=== PATIENT | male | born 1950 | race Caucasian/White ===

== ENCOUNTER → 2016-09-05 | Outpatient (CLI) | payer OTHER ==
[~2016-09-05] MED LIST: ASMANEX220 MC1 INH; ATIVAN1 MG PO; AZITHROMYCIN 2250 MG PO; BENTYL 10 MG CA10 M1 PO; CIMZIA400 MG/2 M SQ; FLOVENT DISKUS50 MCG IH; GUAIFENESIN-CODE5 ML PO; LORTAB 5-325 M1 EACH PO; MEDI-PHEDRINE30 MG PO; MUCINEX DM TABL1 TA1 PO; NASACORT10.8 ML NS; PREDNISONE 20 M20 MG PO; PREVNAR 13 SYR0.5 ML IM; PRILOSEC20 MG PO; PROAIR HFA8.5 GM INH; SINGULAIR 10 MG10 M1 PO; SYMBICORT160 MCG/4. INH; TYLENOL325 MG PO; VITAMIN D2000 UNIT PO; ZOFRAN ODT4 MG DISSOLVE; ZYRTEC10 M1 PO
== END ==
LOC: RAD 05:22
DX: R91.8 Other nonspecific abnormal finding of lung field (principal); J84.10 Pulmonary fibrosis, unspecified; R09.02 Hypoxemia; R06.02 Shortness of breath; J40 Bronchitis, not specified as acute or chronic

== ENCOUNTER → 2018-12-06 | Outpatient (CLI) | payer OTHER | LOC: RAD 15:17 | DX: J98.4 Other disorders of lung (principal); R91.8 Other nonspecific abnormal finding of lung field ==

== ENCOUNTER → 2019-04-10 | Outpatient (CLI) | payer OTHER | LOC: CAT 09:51 | DX: K57.92 Diverticulitis of intestine, part unspecified, without perforation or abscess without bleeding (principal); Z88.0 Allergy status to penicillin; K76.9 Liver disease, unspecified ==

== ENCOUNTER → 2020-02-05 | Outpatient (CLI) | payer OTHER | LOC: SJCVC 14:29 | PROVIDERS: ATTEND Internal Medicine | DX: I47.2 Ventricular tachycardia (principal); E78.5 Hyperlipidemia, unspecified; M06.9 Rheumatoid arthritis, unspecified; J45.30 Mild persistent asthma, uncomplicated; J84.10 Pulmonary fibrosis, unspecified; K21.9 Gastro-esophageal reflux disease without esophagitis; Z79.899 Other long term (current) drug therapy; Z82.49 Family history of ischemic heart disease and other diseases of the circulatory system ==

== ENCOUNTER → 2020-04-08 | Outpatient (CLI) | payer OTHER | LOC: SJCVCIMAG 03-04 07:22 | PROVIDERS: ATTEND Internal Medicine Cardiovascular Disease | DX: R94.31 Abnormal electrocardiogram [ECG] [EKG] (principal); I45.10 Unspecified right bundle-branch block; I49.3 Ventricular premature depolarization; E78.5 Hyperlipidemia, unspecified; K21.9 Gastro-esophageal reflux disease without esophagitis; Z79.899 Other long term (current) drug therapy ==

== ENCOUNTER → 2020-06-25 | Outpatient (CLI) | payer OTHER | LOC: LAB 09:24 | PROVIDERS: ATTEND Nurse Practitioner | DX: Z20.828 Contact with and (suspected) exposure to other viral communicable diseases (principal) ==

== ENCOUNTER → 2020-07-26 | Outpatient (CLI) | payer OTHER | LOC: CAT 08:32 | PROVIDERS: ATTEND Family Medicine | DX: J32.9 Chronic sinusitis, unspecified (principal); J34.89 Other specified disorders of nose and nasal sinuses ==

== ENCOUNTER → 2020-08-17 | Outpatient (CLI) | payer OTHER | LOC: SJCVC 13:25 | PROVIDERS: ATTEND Internal Medicine | DX: I47.2 Ventricular tachycardia (principal); R00.2 Palpitations; E78.5 Hyperlipidemia, unspecified; M06.9 Rheumatoid arthritis, unspecified; J45.30 Mild persistent asthma, uncomplicated; J84.10 Pulmonary fibrosis, unspecified; K21.9 Gastro-esophageal reflux disease without esophagitis; Z79.899 Other long term (current) drug therapy; Z88.1 Allergy status to other antibiotic agents; Z88.0 Allergy status to penicillin ==

== ENCOUNTER → 2020-11-09 | Outpatient (CLI) | payer OTHER ==
[~2020-11-09] MED LIST changes: +DILTIAZEM 24HR120 M1 PO; +FLOVENT HFA12 G1 INH
== END ==
LOC: LAB 08:26
PROVIDERS: ATTEND Otolaryngology
DX: Z01.812 Encounter for preprocedural laboratory examination (principal); Z20.822 Contact with and (suspected) exposure to COVID-19

== ENCOUNTER → 2020-11-12 | Day surgery (SDC) | payer OTHER ==
[~2020-11-12] VITALS: Ht 172.7 cm; Wt 79.8 kg
--- NOTE | ~2020-11-12 | O ---
[facility] [place] [address] OPERATIVE REPORT Name: NOA OSORIO Room #: REG [facility] M..#: [id number] Admission: 11/12/20 Attend Phys: Jesus Webb MD Discharge: Date of : 48 Report #: [id number] THIS REPORT FOR: cc: Dave Polanco MD, Rene P. MD [place],Jesus Braxton MD ~ DATE OF SERVICE: 11/12/2020 PREOPERATIVE DIAGNOSIS: Sinusitis. POSTOPERATIVE DIAGNOSIS: Sinusitis. PROCEDURE: Endoscopic nasal antral window, left side; endoscopic nasal antral window, right side, excision endoscopically, right nathaniel bullosa. SURGEON: Jesus Webb MD ANESTHESIA: General LMA. INDICATIONS: See H and P. TECHNIQUE: After obtaining consent, patient was brought to the operative suite, appropriate time-out was performed. General LMA anesthesia was obtained. The bed was turned 90 degrees, placed in a slight head up position. Cottonoids were placed in each side of the nares for vasoconstriction, 1.5 mL of 1% Xylocaine 1:100,000 epinephrine was injected on each side of the uncinate process as well as the root of the middle turbinates with a little bit extra on the right side with the nathaniel bullosa. The landmarks device was registered with appropriate fiducial points selected and accuracy was confirmed. Under endoscopic guidance with a 30-degree scope, the right naris was intubated. The nathaniel bullosa was bivalved with the use of a sickle knife and then with a combination of the microdebrider and a 0-degree Samuel-Cut forceps, the nathaniel bullosa was removed on its lateral half. Hemostasis was maintained with the use of suction cautery on the free edge. The uncinate process was brought forward with a double ball and removed with a combination of side biter and the microdebrider. Using a side biter I opened the maxillary ostia wider and freshened the edges with the shaver. Attention was turned to the left side where the middle turbinate was medialized. The uncinate process was taken down in its medial portion and with a double ball I was able to easily enter into the maxillary ostia. This was enlarged slightly inferiorly and posteriorly with a combination of side biter and a 0 degree Samuel-Cut. There is noted to be a small piece of polypoid material that was coming down off the ethmoid bulla on this side, which was also removed with [facility] [address] [place] [address] OPERATIVE REPORT Name: NOA OSORIO Room #: REG [facility] M.R.#: [id number] Admission: 11/12/20 Attend Phys: Jesus Webb MD Discharge: Date of : 48 Report #: [id number] the microdebrider, which was hooding over the maxillary ostia. At this point, having met the goals of surgery, a piece of Xerogel was cut in half, bifolded and placed between the middle turbinate and lateral nasal wall on each side. It was infiltrated with a small amount of Xylocaine. I waited several minutes, re-observed the nares. There was no active bleeding noted at this time. Secretions were removed from the nares and the nasopharynx. He was turned over to anesthesia where he was extubated and taken to recovery room in stable condition. ESTIMATED BLOOD LOSS: 25-30 mL. By: 1102 1118 Jesus Webb MD /nt
--- NOTE | 2020-11-12 08:26 | H ---
[facility] [place] [address] HISTORY AND PHYSICAL Name: NOA OSORIO Room #: REG [facility] M.R.#: [id number] Admission: 11/12/20 Attend Phys: Jesus Webb MD Discharge: Date of : 48 Report #: [id number] THIS REPORT FOR: cc: Dave Polanco MD, Rene P. MD [place],Jesus Braxton MD ~ DATE OF SERVICE: 11/12/2020 PREOPERATIVE DIAGNOSIS: Chronic rhinosinusitis. HISTORY OF PRESENT ILLNESS: The patient is a 70-year-old gentleman originally complains of sinus problems back in 2019. He was seen in 09/2020 with a history of recurring nasal and sinus congestion over the following year with symptoms tending to relapse after taking medications. He documents at least 6 times, he has been treated in the last year. His typical symptoms were fatigue, nasal airway obstruction and mild cough and ____ blood pressure. Symptoms tend to start on the right and gravitate to the left side. He does have a history of using biologics for his rheumatoid arthritis and has a previous history of a possible submucous resection of the turbinates in 1967 along with a closed nasal reduction. He was placed on several weeks of medical therapy in September in an attempt to reverse his history. Given his immunocompromised state and the fact he did not have substantial improvement with 3 weeks of antibiotics, he was deemed a good candidate for sinus surgery with the goal of surgery to decrease the frequency and severity of his symptoms. I discussed the surgery involved with him and reviewed the risks and benefits as well as alternatives to surgery including continued medical therapy. At this time, he does wish to proceed forward. ALLERGIES TO MEDICATION: None. MEDICATIONS ON ADMISSION: Albuterol inhaler on a p.r.n. basis, diltiazem 120 mg extended release once a day, Flovent inhaler 1 puff twice a day, Zyrtec on a p.r.n. basis. He also has a history of using biologics every other month for his rheumatoid arthritis (Humira). PAST MEDICAL AND SURGICAL HISTORY: Notable for adenotonsillectomy, the above-mentioned nasal surgery, hernia repair and abdominal surgery. Also, has a history of rheumatoid arthritis as noted above, reflux and asthma. FAMILY HISTORY: Noncontributory. REVIEW OF SYSTEMS: Otherwise, negative for any other cardiovascular, pulmonary or hematopoietic issues aside from the above-mentioned asthma history. PHYSICAL EXAMINATION: [facility] [address] [place] [address] HISTORY AND PHYSICAL Name: NOA OSORIO Room #: REG [facility].#: [id number] Admission: 11/12/20 Attend Phys: Jesus Webb MD Discharge: Date of : 48 Report #: [id number] GENERAL: This gentleman appears younger than his stated age. VITAL SIGNS: Height of 5 feet 9 inches, weight of 180 pounds. Last recorded blood pressure 126/73. HEENT: Unremarkable in the nasal passages aside from some inflammation that is mild in the middle meatal regions. He has a known nathaniel bullosa. Oral cavity and oropharynx were unremarkable with the exception of surgically absent tonsils. NECK: Normal. CHEST: Clear. CARDIOVASCULAR: Regular rate, regular rhythm. ASSESSMENT: History of recurrent and chronic rhinosinusitis. PLAN: Will be for the above-mentioned sinus surgery. <ELECTRONICALLY SIGNED> By: Jesus Webb MD 11/12/20 0826 [id number] Jesus Webb MD /nt
[2020-11-12 08:54] VITALS: BP 129/80
== END | disposition home or self-care (01) ==
LOC: OR 08:07
PROVIDERS: ATTEND Otolaryngology
DX: J32.9 Chronic sinusitis, unspecified (principal); I10 Essential (primary) hypertension; E78.5 Hyperlipidemia, unspecified; J45.909 Unspecified asthma, uncomplicated; M06.9 Rheumatoid arthritis, unspecified; K21.9 Gastro-esophageal reflux disease without esophagitis; Z98.890 Other specified postprocedural states; Z79.899 Other long term (current) drug therapy; Z98.0 Intestinal bypass and anastomosis status
CPT/HCPCS: 50010; 50101; 50386; 50398; 50573; 52290; 52291; 53618; 62110; 62900; 70005

== ENCOUNTER → 2021-01-11 | Outpatient (CLI) | payer OTHER | LOC: SJCVC 13:04 | PROVIDERS: ATTEND Internal Medicine | DX: I45.10 Unspecified right bundle-branch block (principal); R07.89 Other chest pain; I47.2 Ventricular tachycardia; E78.00 Pure hypercholesterolemia, unspecified; K21.9 Gastro-esophageal reflux disease without esophagitis; M06.9 Rheumatoid arthritis, unspecified; E78.5 Hyperlipidemia, unspecified; Z79.899 Other long term (current) drug therapy; Z72.89 Other problems related to lifestyle; Z88.0 Allergy status to penicillin; Z88.1 Allergy status to other antibiotic agents ==

== ENCOUNTER → 2021-02-28 | Outpatient (CLI) | payer OTHER | LOC: RAD 12:05 | PROVIDERS: ATTEND Internal Medicine Pulmonary Disease | DX: R06.02 Shortness of breath (principal) ==

== ENCOUNTER → 2021-04-15 | Outpatient (CLI) | payer OTHER | LOC: CAT 10:42 | PROVIDERS: ATTEND Nurse Practitioner | DX: R59.1 Generalized enlarged lymph nodes (principal); R53.83 Other fatigue; Z78.9 Other specified health status ==

== ENCOUNTER → 2021-07-05 | Outpatient (CLI) | payer OTHER | LOC: CAT 08:19 | PROVIDERS: ATTEND Internal Medicine | DX: Z13.6 Encounter for screening for cardiovascular disorders (principal); I25.10 Atherosclerotic heart disease of native coronary artery without angina pectoris; E78.00 Pure hypercholesterolemia, unspecified ==

== ENCOUNTER → 2021-07-13 | Outpatient (CLI) | payer OTHER | LOC: SJCVC 13:18 | PROVIDERS: ATTEND Internal Medicine | DX: I45.10 Unspecified right bundle-branch block (principal); I49.3 Ventricular premature depolarization; E78.5 Hyperlipidemia, unspecified; K21.9 Gastro-esophageal reflux disease without esophagitis; I47.2 Ventricular tachycardia; M06.9 Rheumatoid arthritis, unspecified; Z98.890 Other specified postprocedural states; Z88.0 Allergy status to penicillin; Z88.8 Allergy status to other drugs, medicaments and biological substances; Z79.899 Other long term (current) drug therapy ==